=== PATIENT | male | born 1950 | race Caucasian/White ===

== ENCOUNTER 2018-04-10 07:34 | Day surgery (SDC) | payer OTHER ==
[2018-04-10] MEDS: BETADINE OPTH PREP OP PRN ×2 (07:46→09:13)
[2018-04-10] MEDS: TETRACAINE 0.5% OPTH SOL OP PRN ×2 (07:46→09:13)
[2018-04-10] MEDS: CYCLOGYL 2% OPTH OP PRN ×3 (07:47→07:57)
[2018-04-10 08:25] VITALS: BP 146/68; TEMP 97.8
[2018-04-10] MEDS ORDERED: LIDOCAINE 1% 20 ML MDV ID STA (08:26)
[2018-04-10] MEDS ORDERED: DEX-MOXI-KETOR OPTH INJ 1/0.5/0.4 MG/ML IO ONE (08:26)
[2018-04-10] MEDS ORDERED: BSS WITH EPINEPHRINE OP ONE (08:26)
[2018-04-10] MEDS ORDERED: BRIMONIDINE TARTRATE 0.2% OPTH SOL OP PRN (08:26)
[2018-04-10] MEDS ORDERED: LIDOCAINE 1%/PHENYLEPHRINE 1.5% BSS (SURGERY) INTRAOCULA ONE (08:26)
[2018-04-10] MEDS ORDERED: AK-DILATE 10% OPTH SOL OP PRN (08:26)
[2018-04-10] MEDS ORDERED: NIRAVAM ODT (SURGERY) PO PRN (08:26)
[2018-04-10] MEDS ORDERED: ZOFRAN 4 MG/2 ML IVP ONE (08:26)
[2018-04-10] MEDS ORDERED: VERSED ONE (09:15)
[2018-04-10] MEDS ORDERED: SUBLIMAZE ONE (09:15)
== END 2018-04-10 10:25 | disposition home or self-care (01) ==
LOC: SURG 07:34
PROVIDERS: ATTEND Ophthalmology
DX: H25.11 Age-related nuclear cataract, right eye (principal)

== ENCOUNTER 2018-04-24 06:32 | Day surgery (SDC) ==
[2018-04-24] MEDS: TETRACAINE 0.5% UNIT-DOSE OP PRN ×2 (07:05→07:46)
[2018-04-24] MEDS: BETADINE OPTH PREP OP PRN ×2 (07:06→07:46)
[2018-04-24] MEDS: CYCLOGYL 2% OPTH OP PRN ×3 (07:07→07:17)
[2018-04-24 07:18] VITALS: BP 141/81; TEMP 98.3
[2018-04-24] MEDS ORDERED: BSS WITH EPINEPHRINE OP ONE (07:26)
[2018-04-24] MEDS ORDERED: LIDOCAINE 1%/PHENYLEPHRINE 1.5% BSS (SURGERY) INTRAOCULA ONE (07:26)
[2018-04-24] MEDS ORDERED: BRIMONIDINE TARTRATE 0.2% OPTH SOL OP PRN (07:26)
[2018-04-24] MEDS ORDERED: ZOFRAN 4 MG/2 ML IVP ONE (07:26)
[2018-04-24] MEDS ORDERED: LIDOCAINE 1% 20 ML MDV ID STA (07:26)
[2018-04-24] MEDS ORDERED: DEX-MOXI-KETOR OPTH INJ 1/0.5/0.4 MG/ML IO ONE (07:26)
[2018-04-24] MEDS ORDERED: SUBLIMAZE ONE (08:00)
[2018-04-24] MEDS ORDERED: VERSED ONE (08:00)
== END 2018-04-24 08:30 | disposition home or self-care (01) ==
LOC: SURG 06:32
PROVIDERS: ATTEND Ophthalmology
DX: H25.12 Age-related nuclear cataract, left eye (principal)